=== PATIENT | male | born 1965 | race Caucasian/White ===

== ENCOUNTER 2021-06-08 11:43 | Observation (INO) | payer BC, SELFPAY ==
[2021-06-08] VITALS (12 sets, daily range): BP systolic 124–208; BP diastolic 64–104; PULSE 58–69; RESP 12–20; TEMP 36.6–36.9; O2SAT 95–98; BMI 32.5
--- NOTE | 2021-06-08 12:02 | DI.CT.S_ITS ---
PROCEDURE: CT STROKE INDICATIONS: TIA/CVA TECHNIQUE: Noncontrast 4.5 mm thick angled axial sections acquired from the foramen magnum to the vertex, with coronal reformats. For radiation dose reduction, the following was used: automated exposure control, adjustment of mA and/or kV according to patient size. COMPARISON: None. FINDINGS: Image quality: Excellent. CSF spaces: Basal cisterns are patent. No extra-axial fluid collections. Ventricles are normal in size and shape. Brain: No midline shift. No intracranial masses or hemorrhage. Mccloud-white matter interface is normal. Skull and face: Calvarium and visualized facial bones are intact, without suspicious lesions. Sinuses: Visualized sinuses and mastoids are clear. IMPRESSION: No acute intracranial hemorrhage is seen. No acute intracranial process is seen. Note: Case discussed by telephone with Dr. Hopson at 11:18 a.m. [place] time on June 08, 2021. This study fulfills neurological imaging criteria for inclusion or exclusion of acute stroke therapies based on available published neurological imaging guidelines. Dictated by: Андрей Hill M.D. on 06/08/2021 at 11:17 Approved by: Андрей Hill M.D. on 06/08/2021 at 11:19
--- NOTE | 2021-06-08 12:02 | DI.RAD.S_ITS ---
PROCEDURE: XR CHEST 1V INDICATIONS: Possible stroke TECHNIQUE: One view of the chest was acquired. COMPARISON: [facility], CT, CT STROKE, 06/08/2021, 12:16. FINDINGS: Surgical changes and devices: None. Lungs and pleura: Lungs are clear. No pleural effusions or pneumothorax. Mediastinum: Mediastinal contours appear normal. Heart size is normal. Bones and chest wall: No suspicious bony lesions. Overlying soft tissues appear unremarkable. IMPRESSION: Portable chest within normal limits. Dictated by: Андрей Hill M.D. on 06/08/2021 at 11:46 Approved by: Андрей Hill M.D. on 06/08/2021 at 11:47
[2021-06-08 12:15] LABS: Add Manual Diff / Slide Review NO; Basophils Absolute Auto 100 /uL (0-100); Basophils Percent Auto 0.9 % (0-2); Eosinophils Absolute Auto 200 /uL (0-450); Eosinophils Percent Auto 2.7 % (2-4); Hematocrit 47.2 % (41-53); Hemoglobin 16.4 g/dL (13.5-17.5); Lymphocytes Absolute Auto 1500 /uL (1100-4500); Lymphocytes Percent Auto 19.8 % (25-40); Mean Corpuscular HGB Conc 34.6 % (30-36); Mean Corpuscular Volume 89.5 fL (80-100); Monocytes Absolute Auto 700 /uL (0-900); Monocytes Percent Auto 9.1 % (3-14); Neutrophils Absolute Auto 5300 /uL (1500-7000); Neutrophils Percent Auto 67.5 % (50-75); Platelet Count 202 X10^3/uL (150-400); Red Blood Cell Count 5.28 X10^6/uL (4.5-5.9); Red Cell Distribution Width 13.5 % (11.6-14.8); White Blood Cell Count 7.8 X10^3/uL (4.5-11.0)
[2021-06-08 12:25] LABS: Alanine Aminotransferase 50 IU/L (<50); Albumin 4.9 g/dL (3.5-5.0); Albumin Globulin Ratio 1.4 (1.0-2.8); Alkaline Phosphatase 85 U/L (38-126); Aspartate Aminotransferase 35 IU/L (17-59); Bilirubin Total 0.6 mg/dL (0.2-1.3); Blood Urea Nitrogen 15 mg/dL (9-20); Calcium 9.2 mg/dL (8.4-10.2); Carbon Dioxide 25 mmol/L (22-32); Chloride 101 mmol/L (98-107); Creatine Kinase 108 U/L (55-170); Estimated Glomerular Filt Rate > 60.0 mL/min (>60); Globulin 3.5 g/dL (1.7-4.1); Glucose 108 mg/dL (70-100); HEMOLYSIS 23 (0-50); Potassium 4.6 mmol/L (3.4-5.1); Sodium 137 mmol/L (137-145); Total Protein 8.4 g/dL (6.3-8.2)
[2021-06-08 12:37] LABS: Troponin I < 0.012 ng/mL (0.01-0.034)
[2021-06-08 12:40] LABS: CKMB % Relative Index 1.1 % (1.5-5.0); Creatine Kinase MB 1.16 ng/mL (<2.37)
--- NOTE | 2021-06-08 12:47 | ED.NEUROSD ---
HPI - Neuro Symptoms/Deficit General Chief Complaint: Neuro Symptoms/Deficit Stated Complaint: Sent From [facility],Dizzy,Facial Numbness,Vision Issues Time Seen by Provider: 06/08/21 12:03 Source: patient Mode of arrival: Ambulatory Limitations: no limitations History of Present Illness HPI Narrative: Patient is a 56-year-old male. He was sent from an outside walk-in clinic for evaluation of dizziness, facial numbness, loss of vision. He states the symptoms started this morning. 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 He states that he started to get dizzy. He described this is more of a lightheadedness rather than a vertigo sensation. He had started noticing some numbness on the right side of his face and also some numbness on his right arm and leg. The symptoms improved somewhat. He went to an outside walk-in clinic. While he was at the clinic he noticed that he could not see the right side of his phone. He also could not see the right side of the providers face. He was sent here to the emergency department for further evaluation. He was hypertensive. He has no history of high blood pressure. Here in the emergency department all of his symptoms have resolved. On Anticoagulants: No Related Data Home Medications Medication Instructions Recorded Confirmed No Known Home Medications 06/08/21 06/08/21 Allergies Allergy/AdvReac Type Severity Reaction Status Date / Time Cephalosporins Allergy Intermediate Rash Verified 06/08/21 14:04 Penicillins Allergy Intermediate Rash Verified 06/08/21 14:04 Review of Systems Constitutional Constitutional: Denies fever(s) Eyes Eyes: Reports as per HPI Cardiovascular Cardiovascular: Reports system reviewed and no additional complaints, except as documented, Denies chest pain and Denies dyspnea Respiratory Respiratory: Reports system reviewed and no additional complaints, except as documented and Denies dyspnea Gastrointestinal Gastrointestinal: Reports system reviewed and no additional complaints, except as documented and Denies abdominal pain Genitourinary Genitourinary: Reports system reviewed and no additional complaints, except as documented Musculoskeletal Musculoskeletal: Reports system reviewed and no additional complaints, except as documented Integumentary/Breasts Skin/Breast: Reports system reviewed and no additional complaints, except as documented Neurologic Neurologic: Reports as per HPI Psychiatric Psychiatric: Reports system reviewed and no additional complaints, except as documented Endocrine Endocrine: Reports system reviewed and no additional complaints, except as documented Hematologic/Lymphatic On Anticoagulants: No Allergic/Immunologic Allergic/Immunologic: Reports system reviewed and no additional complaints, except as documented Patient History Medical History Patient denies medical problems Social History household members: spouse and children Smoking Status: Never smoker alcohol intake: current Substance Use Type: does not use Exam Initial Vital Signs Initial Vital Signs: Vital Signs Temperature 97.8 F 06/08/21 11:52 Pulse Rate 69 06/08/21 11:52 Respiratory Rate 20 06/08/21 11:52 Blood Pressure 208/99 H 06/08/21 11:52 Pulse Oximetry 96 06/08/21 11:52 Const General: cooperative, healthy appearing, comfortable, well developed and well groomed Limitations: mental status not altered HENMT Head: normal to inspection and normocephalic Mouth: oral mucosae normal Eyes General: appearance normal, both eyes and all related structures Neck Neck: normal visual inspection Resp Effort & Inspection: normal respiratory effort Auscultation: clear to auscultation bilaterally Cardio Rate: regular rate Rhythm: regular rhythm GI Inspection: non-distended Palpation: soft and No tender Skin General: no rashes or lesions noted Lesions: no lesions Rashes: no rashes Neuro General: patient alert, patient awake and patient oriented x3 Cranial Nerves: CN's II-XI intact bilaterally Cognition: normal cognition Speech: speech normal Gait: normal gait Motor: muscle tone normal throughout Sensory Exam: no sensory deficits noted Coordination: [id number] test normal Extrem General: normal to inspection, capillary refill normal and No edema Psych Appearance: grossly normal and well kempt Scores GCS Yuli coma scale eye opening: Spontaneous [place] coma scale verbal response: Orientated Yuli coma scale motor response: Obey commands Yuli coma scale total score: 15 NIH Stroke Scale Level of Conciousness: Alert, keenly responsive Ask month/age: Answers both questions correctly. Open/close eyes, close hand: Performs both tasks correctly Best gaze horizontal: Normal Visual chaudhary: No visual loss Facial palsy: Normal symetrical movement Left arm drift: No drift for full 10 sec Right arm drift: No drift for full 10 sec Left leg drift: No drift for full 5 sec Right leg drift: No drift for full 5 sec Limb ataxia: Absent Sensory on face/arms/legs: Normal, no sensory loss Best language: No aphasia, normal Dysarthria: Normal Extinction or inattention: No abnormality Total NIH Stroke scale score: 0 Course Orders Ordered: ED Orders 06/08/21 12:02 CT Stroke Stat XR chest 1V Stat EKG-12 Lead Stat 06/08/21 12:05 Complete Blood Count AUTO DIFF Stat Comprehensive Metabolic Panel Stat Troponin & CK Cardiac Panel Stat 06/08/21 13:08 COVID19 - ADMIT ([employer] swab/PCR) Stat Acetaminophen (Acetaminophen 325 Mg Tablet) 650 mg PO Q6HR PRN PRN Reason: Fever Aspirin (Aspirin Ec 81 Mg Tablet) 81 mg PO DAILY JUNO Atorvastatin Calcium (Atorvastatin 20 Mg Tablet) 20 mg PO BEDTIME JUNO Enoxaparin Sodium (Enoxaparin 40 Mg/0.4 Ml Syringe) 40 mg SUBCUT DAILY JUNO Last Admin: 06/08/21 17:40 Dose: 40 mg Documented by: IRAM Metoprolol Tartrate (Metoprolol Tartrate 5 Mg/5 Ml Inj) 5 mg IV Q6H PRN PRN Reason: BP>210/110 Discontinued Medications Aspirin (Aspirin 81 Mg Chew Tab) 324 mg PO NOW ONE Stop: 06/08/21 12:48 Last Admin: 06/08/21 13:00 Dose: 324 mg Documented by: SYDNEY Labetalol HCl (Labetalol 20 Mg/4 Ml Syringe) 10 mg IV NOW ONE Stop: 06/08/21 12:48 Last Admin: 06/08/21 12:59 Dose: 10 mg Documented by: SYDNEY Vital Signs Vital signs: Vital Signs - 8 hr 06/08/21 11:52 06/08/21 12:07 06/08/21 12:30 Temperature 97.8 F Pulse Rate 69 65 68 Respiratory Rate 20 17 13 Blood Pressure 208/99 H Pulse Oximetry 96 98 98 06/08/21 12:59 06/08/21 13:00 Temperature Pulse Rate 63 68 Respiratory Rate 13 13 Blood Pressure 155/88 H 151/93 H Pulse Oximetry 97 95 MDM - Neuro Symptoms/Deficit Lab Data Attestation: I reviewed the patient's lab results. Result diagrams: 06/08/21 12:05 06/08/21 12:05 Labs: Lab Results 06/08/21 06/08/21 06/08/21 Range/Units 12:05 12:05 13:08 WBC 7.8 (4.5-11.0) X10^3/uL RBC 5.28 (4.5-5.9) X10^6/uL Hgb 16.4 (13.5-17.5) g/dL Hct 47.2 (41-53) % MCV 89.5 (80-100) fL MCH 31.0 (26-34) PG MCHC 34.6 (30-36) % RDW 13.5 (11.6-14.8) % Plt Count 202 (150-400) X10^3/uL Neut % (Auto) 67.5 (50-75) % Lymph % (Auto) 19.8 L (25-40) % [place] % (Auto) 9.1 (3-14) % Eos % (Auto) 2.7 (2-4) % Baso % (Auto) 0.9 (0-2) % Neut # (Auto) 5300 (4044-6057) /uL Lymph # (Auto) 1500 (0158-6179) /uL [place] # (Auto) 700 (0-900) /uL Eos # (Auto) 200 (0-450) /uL Baso # (Auto) 100 (0-100) /uL Sodium 137 (137-145) mmol/L Potassium 4.6 (3.4-5.1) mmol/L Chloride 101 (98-107) mmol/L Carbon Dioxide 25 (22-32) mmol/L BUN 15 (9-20) mg/dL Creatinine 1.15 (0.66-1.25) mg/dL Estimated GFR > 60.0 (>60) mL/min BUN/Creatinine Ratio 13.0 (6-22) Glucose 108 H (70-100) mg/dL Calcium 9.2 (8.4-10.2) mg/dL Total Bilirubin 0.6 (0.2-1.3) mg/dL AST 35 (17-59) IU/L ALT 50 H (<50) IU/L Alkaline Phosphatase 85 (38-126) U/L Total Creatine Kinase 108 (55-170) U/L CK-MB (CK-2) 1.16 (<2.37) ng/mL CK-MB (CK-2) Rel Index 1.1 L (1.5-5.0) % Troponin I < 0.012 (0.01-0.034) ng/mL Total Protein 8.4 H (6.3-8.2) g/dL Albumin 4.9 (3.5-5.0) g/dL Globulin 3.5 (1.7-4.1) g/dL Albumin/Globulin Ratio 1.4 (1.0-2.8) SARS-CoV-2 (PCR) Negative (Negative) Point of Care Testing Glucose POC [address] scan - head: Radiologist's Impression: [address] [address] [address] Scan Report Signed Patient: Vincent Burr MR#: [id number] : 1965 Acct:[id number] Age/Sex: 56 / M Date of Service: 06/08/21 Loc: ED Accession Number: [id number] ?? Procedure: CT Stroke Ordering Provider: Asa Hopson D.O. PROCEDURE:? CT STROKE ? INDICATIONS:? TIA/CVA ? TECHNIQUE:? Noncontrast 4.5 mm thick angled axial sections acquired from the foramen magnum to the vertex, with coronal reformats.? For radiation dose reduction, the following was used:? automated exposure control, adjustment of mA and/or kV according to patient size.? ? COMPARISON:? None. ? FINDINGS:? Image quality:? Excellent.? ? CSF spaces:? Basal cisterns are patent.? No extra-axial fluid collections.? Ventricles are normal in size and shape.? ? Brain:? No midline shift.? No intracranial masses or hemorrhage.? Mccloud-white matter interface is normal.? ? Skull and face:? Calvarium and visualized facial bones are intact, without suspicious lesions.? ? Sinuses:? Visualized sinuses and mastoids are clear.? ? ? IMPRESSION:? No acute intracranial hemorrhage is seen.? ? No acute intracranial process is seen.? ? Note: Case discussed by telephone with Dr. Hopson at 11:18 a.m. [place] time on June 08, 2021.? ? This study fulfills neurological imaging criteria for inclusion or exclusion of acute stroke therapies based on available published neurological imaging guidelines.? ? ? Dictated by: Андрей Hill M.D. on 06/08/2021 at 11:17 ? ? Approved by: Андрей Hill M.D. on 06/08/2021 at 11:19?? Chest x-ray: Radiologist's Impression: [address] [address] XRay Report Signed Patient: Vincent Burr MR#: [id number] : 1965 Acct:[id number] Age/Sex: 56 / M Date of Service: 06/08/21 Loc: ED Accession Number: [id number] ?? Procedure: XR chest 1V Ordering Provider: Asa Hopson D.O. PROCEDURE:? XR CHEST 1V ? INDICATIONS:? Possible stroke ? TECHNIQUE:? One view of the chest was acquired.? ? COMPARISON:? [facility], CT, CT STROKE, 06/08/2021, 12:16. ? FINDINGS:? ? Surgical changes and devices:? None.? ? Lungs and pleura:? Lungs are clear.? No pleural effusions or pneumothorax.? ? Mediastinum:? Mediastinal contours appear normal.? Heart size is normal.? ? Bones and chest wall:? No suspicious bony lesions.? Overlying soft tissues appear unremarkable.? IMPRESSION:? ? Portable chest within normal limits. ? ? ? Dictated by: Андрей Hill M.D. on 06/08/2021 at 11:46 ? ? Approved by: Андрей Hill M.D. on 06/08/2021 at 11:47?? ECG Data Attestation: I personally reviewed and interpreted this ECG as follows: Interpretation: EKG obtained prior to arrival here in the ER Sinus arrhythmia Ventricular rate is 75 Normal axis Normal QRS Normal QTC No ST T wave changes MDM Narrative Medical decision making narrative: Patient's symptoms have resolved. His head CT is unremarkable. He has no vision deficits today. He was hypertensive upon arrival. He was given labetalol to improve this. Given his visual disturbances that he had earlier today I have a higher suspicion for TIA. Patient was also given aspirin. Patient does require further evaluation will be admitted to the hospital. Discussed the need for admission with the patient. He expressed understanding and agreement. Discharge Plan Departure Patient Disposition: Admitted as Observation Clinical Impression: Brain TIA, Hypertension Admit Date/Time: 06/08/21 13:23 Admit Provider: Elsi Huff
[2021-06-08] MEDS: LABETALOL 20 MG/4 ML SYRINGE 10 MG IV (12:59)
[2021-06-08] MEDS: ASPIRIN 81 MG CHEW TAB 324 MG PO (13:00)
[2021-06-08 14:02] LABS: COVID19 - ADMIT (NP swab/PCR) Negative (Negative)
--- NOTE | 2021-06-08 14:19 | PT-IP ANOTE ---
PT order received. ED note not yet complete, pt arrived 2 hours ago with facial numbness and vision changes. Will hold PT consult until work-up is completed, ED note complete and impression given.
--- NOTE | 2021-06-08 14:40 | PM.HP.1 ---
History of Present Illness History of Present Illness Date Patient Seen: 06/08/21 Chief complaint: Sent From [facility],Dizzy,Facial Numbness,Vision Issues Narrative: THIS IS A 56-YEAR-OLD MALE WITH REPORTEDLY NO SIGNIFICANT PAST MEDICAL HISTORY REASON TO THE HOSPITAL WITH REPORTED NUMBNESS TO HIS FACIAL AREA. SOME CHANGE OF VISION ALSO REPORTED. HE STATED THAT THIS BEEN GOING JUST PRIOR TO ADMISSION TODAY E.D. AT AROUND 10:30 A.M. THIS MORNING.. IT LASTED ABOUT 2 HOURS AND SYMPTOMS HAVE RESOLVED AT THIS TIME. HE REPORTED A PRIOR SIMILAR EVENTS ABOUT 6 MONTHS AGO. THIS WAS ALSO ASSOCIATED WITH BLURRED /DOUBLE VISIONS. NO HISTORY OF [place], DIABETES, OR HYPERTENSION. DESPITE PATIENT DENIES ANY HISTORY OF HYPERTENSION HOWEVER HIS BLOOD PRESSURE SIGNIFICANTLY BETTER THAN ADMISSION. APART FROM SOME MILDLY ELEVATED LIVER ENZYMES WELL BLOOD GLUCOSE LEVEL, HIS WORKUP IS FAIRLY BENIGN. CT OF THE HEAD WAS NEGATIVE FOR ANY ACUTE CHANGES NO SIGNS OF INFECTIOUS PROCESS ON IMAGING. Patient History Family & Social History Safety & Behavioral: Feels Safe in Current Yes Environment Been Physically Hurt or No Threatened By a Person Tobacco & Substance use: Substance Use Type does not use Meds Home Medications and Allergies Home Medications Medication Instructions Recorded Confirmed Type No Known Home Medications 06/08/21 06/08/21 History Allergies Allergy/AdvReac Type Severity Reaction Status Date / Time Cephalosporins Allergy Intermediate Rash Verified 06/08/21 14:04 Penicillins Allergy Intermediate Rash Verified 06/08/21 14:04 Review of Systems Review of Systems Narrative: ALL SYSTEM REVIEWED. NEGATIVE UNLESS NOTED ABOVE IN HPI Exam Vital Signs (past 8 hours): - 06/08/21 11:52 06/08/21 12:07 06/08/21 12:30 Temperature 97.8 F Pulse Rate 69 65 68 Respiratory Rate 20 17 13 Blood Pressure 208/99 H Pulse Oximetry 96 98 98 06/08/21 12:59 06/08/21 13:00 06/08/21 13:30 Temperature Pulse Rate 63 68 58 L Respiratory Rate 13 13 12 Blood Pressure 155/88 H 151/93 H Pulse Oximetry 97 95 96 06/08/21 13:31 06/08/21 13:45 06/08/21 14:00 Temperature Pulse Rate 58 L 60 58 L Respiratory Rate 17 12 Blood Pressure 124/64 158/74 H 156/89 H Pulse Oximetry 95 96 06/08/21 14:30 Temperature Pulse Rate 58 L Respiratory Rate 16 Blood Pressure 142/79 H Pulse Oximetry 96 Oxygen Delivery Method Room Air Narrative Exam Narrative: NO ACUTE DISTRESS. PATIENT IS ALERT ORIENTED X3. VITAL SIGNS STABLE HEAD ATRAUMATIC NORMOCEPHALIC NECK : SUPPLE WITHOUT ADENOPATHY NO CAROTID BRUITS EYE: EOMI, PERRLA, NORMAL CONJUNCTIVA; NO JAUNDICE CHEST: REGULAR RATE. NO RUBS. PMI IS NON DISPLACED. NO MURMURS; NORMAL S1-S2 PULMONARY: DECREASED BS OVER THE BASES. MILD BIBASILAR CRACKLES NOTED; NO INCREASED DULLNESS TO PERCUSSION ABDOMEN: SOFT. NONTENDER. NONDISTENDED. BOWEL SOUNDS ARE PRESENT IN ALL 4 QUADRANTS. NO MASS. EXTREMITIES: NO EDEMA.. NO CYANOSIS CLUBBING NOTED. NEURO: CRANIAL NERVES 2-12 GROSSLY INTACT. NO FOCAL NEUROLOGICAL DEFICIT NOTED. MSK: NORMAL RANGE OF MOTION FOR AGE. NO JOINT EFFUSION. SKIN: NORMAL FOR ETHNICITY; NO ECCHYMOSIS. NO LESION. GOOD TURGOR.; NO RASHES : NORMAL EXTERNAL GENITALIA. PSYCH : APPROPRIATE MOOD AND AFFECT. ALERT AWAKE ORIENTED X3 Objective Labs Result Diagrams: 06/08/21 12:05 06/08/21 12:05 Labs: Laboratory Results - last 24 hr 06/08/21 06/08/21 06/08/21 12:05 12:05 13:08 WBC 7.8 RBC 5.28 Hgb 16.4 Hct 47.2 MCV 89.5 MCH 31.0 MCHC 34.6 RDW 13.5 Plt Count 202 Neut % (Auto) 67.5 Lymph % (Auto) 19.8 L [place] % (Auto) 9.1 Eos % (Auto) 2.7 Baso % (Auto) 0.9 Neut # (Auto) 5300 Lymph # (Auto) 1500 [place] # (Auto) 700 Eos # (Auto) 200 Baso # (Auto) 100 Sodium 137 Potassium 4.6 Chloride 101 Carbon Dioxide 25 BUN 15 Creatinine 1.15 Estimated GFR > 60.0 BUN/Creatinine Ratio 13.0 Glucose 108 H Calcium 9.2 Total Bilirubin 0.6 AST 35 ALT 50 H Alkaline Phosphatase 85 Total Creatine Kinase 108 CK-MB (CK-2) 1.16 CK-MB (CK-2) Rel Index 1.1 L Troponin I < 0.012 Total Protein 8.4 H Albumin 4.9 Globulin 3.5 Albumin/Globulin Ratio 1.4 SARS-CoV-2 (PCR) Negative Assessment & Plan Assessment & Plan narrative: PROBLEM LIST POSSIBLE TIA VERSUS CVA. MRI PENDING ACCELERATED HYPERTENSION VERSUS HYPERTENSIVE URGENCY ELEVATED LIVER ENZYMES. MILD. UNCLEAR CAUSE. PLAN WILL CHECK AN ECHOCARDIOGRAM WILL ALSO CHECK A CAROTID ULTRASOUND LIPITOR TO HOLD THE MORNING ANTIHYPERTENSIVE MEDICATION ORDERED COULD CONSIDER STARTING ON ORAL ANTI HYPERTENSIVE MEDS PRIOR TO DISCHARGE NEURO CHECK EVERY 4 HOURS Q.4 HOURS VITAL SIGNS REFERRED TO PT AND OT TEAMS REPEAT CT HEAD IF INDICATED MRI OF THE BRAIN ORDERED CONSIDER MRA OF THE HEAD AND NECK WELL CHECK RPR AND HOMOCYSTINE LEVEL FALL PRECAUTIONS ADDITIONAL MANAGEMENT PER CLINICAL COURSE DISCHARGE LIKELY IN THE NEXT 24-48 HRS Time Spent With Patient Critical Care time: I spent a total of [] minutes of critical care time on this patient's care today; this time is exclusive of procedural time.
[2021-06-08] MEDS: ENOXAPARIN 40 MG/0.4 ML SYRINGE SUBCUT (17:40)
--- NOTE | 2021-06-08 18:38 | PC.NURSE ---
Addendum entered by Ashwini Sands R.N. 06/08/21 18:41: NIH scale a 0. Original Note: Patient is not having any visual changes, he is able to lift both his arms and legs up and is not having any memory issues or hemiperisis. He is alert and oriented x3, blood suar in the 80s and no swallowing issues. Resting comfortably now.
[2021-06-08] MEDS: ATORVASTATIN 20 MG TABLET PO (20:29)
[2021-06-08] MEDS: ACETAMINOPHEN 325 MG TABLET 650 MG PO (20:34)
--- NOTE | 2021-06-09 | DI.ECHO.S_ITS ---
[facility]---------+ [facility] +---------+ : : [address] [place] : : : : [id number] : : : : Phone: [phone] Echocardiogram Report + :Name: LILA LIVE Study Date: 06/09/2021 Height: 69 in : :[facility] ReadingLocation: Weight: 220 lb : : Gender: Male BSA: 2.2 m2 : :: 1965 Age: 56 yrs BP: 133/83 mmHg: :Reason For Study: TIA VS CVA : :Ordering Physician: [facility] Performed By: Tori Reyna : :Referring: TATA MENDEZ : + Interpretation Summary The patient was in normal sinus rhythm during the exam. The left ventricle is normal in size and wall thickness. The ejection fraction is estimated to be 60-65%. There is no obvious LV thrombus. The right ventricle is normal in size and function. Doppler interrogation and injection of saline echo contrast shows no evidence for an interatrial shunt. There is mild tricuspid regurgitation. The right ventricular systolic pressure is estimated to be at least 29 mmHg based on an estimated right atrial pressure of 3 mm Hg. The ascending aorta is mildly enlarged. Procedure: A two-dimensional transthoracic echocardiogram with color flow and Doppler was performed. The study quality was technically adequate. There is no prior echocardiogram noted for this patient. A saline contrast injection was performed to assess for cardiac shunting. The patient was in normal sinus rhythm during the exam. Left Ventricle: The left ventricle is normal in size and wall thickness. There is no thrombus. The ejection fraction is estimated to be 60-65%. There are no obvious focal wall motion abnormalities noted but poor endocardial definition reduces the sensitivity for the detection of such. MV E/A: 1.1 Med Peak E' Jani: 5.9 cm/sec E/E' med: 14.7. Right Ventricle: The right ventricle is normal in size and function. Atria: Both atria are normal in size. Bubble study was captured on image frame(s) # 68. Doppler interrogation and injection of saline echo contrast shows no evidence for an interatrial shunt. Mitral Valve: The mitral valve is normal in structure and function. There is trace mitral regurgitation. Aortic Valve: The aortic valve is normal in structure and function. The aortic valve is trileaflet. There is no aortic valve stenosis. There is trace aortic regurgitation. Tricuspid Valve: The tricuspid valve is normal. There is mild tricuspid regurgitation. The right ventricular systolic pressure is estimated to be at least 29 mmHg based on an estimated right atrial pressure of 3 mm Hg. Pulmonic Valve: The pulmonic valve is not well seen, but is grossly normal. There is trace pulmonic regurgitation. Great Vessels: The aortic root is normal size. The ascending aorta is mildly enlarged. The aortic arch is normal in size. The IVC is of normal diameter and collapses greater than 50% with a sniff. This suggests a low right atrial pressure of 3 mm Hg. Pericardium/ Pleura There is no pericardial effusion. There is no pleural effusion. MMode/2D Measurements & Calculations LVIDd: 4.1 cm LVOT diam: 2.0 cm LVIDs: 3.1 cm Ao root diam: 3.2 cm FS: 25.3 % asc Aorta Diam: 3.9 cm EPSS: 0.49 cm Ao Arch Diam (Prox Trans): 2.9 cm IVSd: 0.90 cm LVPWd: 1.1 cm LV garcia. diameter/BSA (cm/m^2): 1.9 LV sys. diameter/BSA (cm/m^2): 1.4 LA A2 area: 13.8 cm2 RA long axis: 5.4 cm LA A4 area: 16.5 cm2 RA area: 14.9 cm2 LA length (vol): 5.0 cm RA vol: 35.0 ml LA vol: 38.9 ml RA : 16.3 ml/m2 LA vol index: 18.1 ml/m2 IVC diam: 2.1 cm RVD1 (basal): 3.5 cm TAPSE: 2.5 cm Doppler Measurements & Calculations Ao V2 max: 135.6 cm/sec LVOT Max Jani: 95.3 cm/sec Ao V2 mean: 91.1 cm/sec LV V1 max P.6 mmHg Ao max P.4 mmHg LV V1 VTI: 21.4 cm Ao mean P.9 mmHg DORIE(I,D): 2.1 cm2 Ao V2 VTI: 31.5 cm DORIE(V,D): 2.1 cm2 sev ratio: 0.68 DORIE indexed to BSA (cm^2/m^2): 0.96 MV E max jani: 87.4 cm/sec TR max jani: 251.8 cm/sec MV A max jani: 76.9 cm/sec TR max P.4 mmHg MV E/A: 1.1 PA V2 max: 79.2 cm/sec Med Peak E' Jani: 5.9 cm/sec PA V2 mean: 55.8 cm/sec E/E' med: 14.7 PA mean P.4 mmHg Lat Peak E' Jani: 8.7 cm/sec PA pr(Accel): 45.6 mmHg E/E' lat: 10.0 E/e' average: 12.4 MV dec time: 0.20 sec SV(LVOT): 64.7 ml Reading Physician:01:41 PM
[2021-06-09 05:19] LABS: Hemoglobin A1C% w Est Avg Glu 5.6 % (4.0-6.0)
[2021-06-09 05:24] LABS: Alanine Aminotransferase 47 IU/L (<50); Albumin 4.2 g/dL (3.5-5.0); Albumin Globulin Ratio 1.3 (1.0-2.8); Alkaline Phosphatase 72 U/L (38-126); Aspartate Aminotransferase 36 IU/L (17-59); BUN Creatinine Ratio 13.2 (6-22); Bilirubin Total 0.6 mg/dL (0.2-1.3); Blood Urea Nitrogen 16 mg/dL (9-20); Calcium 9.1 mg/dL (8.4-10.2); Carbon Dioxide 26 mmol/L (22-32); Chloride 103 mmol/L (98-107); Estimated Glomerular Filt Rate > 60.0 mL/min (>60); Globulin 3.2 g/dL (1.7-4.1); Glucose 109 mg/dL (70-100); HEMOLYSIS < 15 (0-50); Potassium 4.3 mmol/L (3.4-5.1); Sodium 137 mmol/L (137-145); Total Protein 7.4 g/dL (6.3-8.2)
[2021-06-09 05:25] LABS: Cholesterol 313 mg/dL (140-199); HDL Cholesterol 40 mg/dL (40-60); LDL Cholesterol Calculated 220 mg/dL (<100); Triglycerides 265 mg/dL (35-150)
[2021-06-09 08:00] VITALS: BP 133/83; PULSE 59; RESP 18; TEMP 36.1; O2SAT 96
[2021-06-09] MEDS: ENOXAPARIN 40 MG/0.4 ML SYRINGE SUBCUT (08:15)
[2021-06-09] MEDS: ASPIRIN EC 81 MG TABLET PO (08:15)
--- NOTE | 2021-06-09 10:05 | PC.NURSE ---
Assess- Patients NIH stroke scale a 0. He is up independently to the bathroom. Denies any visual issues, numbness or tingling. He is resting comfortably.
--- NOTE | 2021-06-09 11:03 | PT.IIE ---
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 Social History Household Members spouse,children Living Arrangements House Number of Floors (Floors) One Floor Number of Stairs To Enter/Railing? 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, works at [employer] M2 PT-IP Current Condition Start: 06/09/21 11:29 Freq: NEEDED Status: Active Protocol: Document 06/09/21 11:03 DLM (Rec: 06/09/21 11:40 DL [id number]) Physical Therapy Current Condition Current Condition Evaluation Date 06/09/21 Treatment Diagnosis facial numbness, impaired balance and vision changes Onset Date 06/08/21 M3 PT-IP Subjective Start: 06/09/21 11:29 Freq: NEEDED Status: Active Protocol: Document 06/09/21 11:03 DLM (Rec: 06/09/21 11:40 DL [id number]) Subjective Physical Therapy Visit Type Type Initial Evaluation Visit Start Time 10:25 Visit Stop Time 11:03 Total Visit Minutes 38 Number of ASSISTANT NURSE MANAGER Visits 0 Physical Therapy Visit Comments Patient Comments He reports all of his symptoms have resolved today. He felt like he was falling to the right yesterday and was not able to see things on the right side. Patient Goals discharge home Therapy Pain Assessment Pain When Pain Assessed During Mobility Pain Present Pain Present Denied Pain M4 PT-IP Mobility and Gait Start: 06/09/21 11:29 Freq: NEEDED Status: Active Protocol: Document 06/09/21 11:03 DLM (Rec: 06/09/21 11:40 DL [id number]) PT-Bed Mobility Assessment Rolling Type of Rolling Bilateral Level of Assist Independent Supine to Sit Supine to Sit Independent Sit to Supine Sit to Supine Independent Scooting Scooting to Edge of Bed Independent Scooting Up and Down in Bed Independent PT-Transfer Assessment Sit to and From Stand Sit to and from Stand Independent Equipment Transfer Assistive Device None Transfers Transfer Destination Chair Transfer Technique Stand Step Pivot Transfer Ability Level of Assist Independent Gait Assessment Gait Gait Assistance Required: Independent Distance (Feet) 300 Assistive Devices Assistive Device None Gait Deviations General Gait Pattern Within Normal Limits Comments Gait Comments safe gait pattern, no drift to right today, no losses of balance observed Stair Climbing Assessment Evaluation Level of Assist On Stairs Independent Devices Stair Climbing Assistive Devices None Technique/Endurance Stair Climbing Direction Ascend and Descend Stair Climbing Technique Step Over Step Number of Steps Climbed 3 Query Text: Stair Climbing Set # Repetitions (reps) 1 PT-Balance Assessment Sitting Balance and Reactions Static Sitting Balance Ability Normal Dynamic Sitting Balance Ability Normal Standing Balance and Reactions Static Standing Balance Ability Normal Dynamic Standing Balance Ability Normal Device Used no device Balance Tests Single Limb Standing Independent, holds greater than 10 sec Romberg independent, no LOB Tandem Standing Independent, no LOB Velarde Balance Test Score 56 Query Text:Score Comments Other Balance Tests/Deviations/Treatment pt describes feeling like it : is a little more difficult for him to balance on right foot than left M5 PT-IP Objective Assessments Start: 06/09/21 11:29 Freq: NEEDED Status: Active Protocol: Document 06/09/21 11:03 DL (Rec: 06/09/21 11:40 [facility] [id number]) Orientation Orientation/Cognition Level of Alertness Alert Language Function Ability No Deficits Noted Safety Awareness Understands Safety Issues Memory Description No Deficits Noted Comments vision screening shows no deficits with saccades or smooth pursuits Gross Range of Motion Upper Extremity ROM Assessment Within Functional Limits Lower Extremity ROM Assessment Within Functional Limits Strength Upper Extremity Strength Assessment Within Functional Limits Lower Extremity Strength Assessment Within Functional Limits Coordination Assessment Gross Coordination Gross Coordination WNL Sensation Assessment Sensation Gross Sensation WNL Muscle Tone Muscle Tone WNL Yes M6 PT-IP Treatment Start: 06/09/21 11:29 Freq: NEEDED Status: Active Protocol: Document 06/09/21 11:03 DLM (Rec: 06/09/21 11:40 [facility] [id number]) Physical Therapy Treatment Education Education Provided Safety Other Treatments Other Treatment Performed he reports a prior episode like this one but less intense about 6 months ago and a very brief episode in the car about 5 years ago, no deficits following these events M7 PT-IP Assessment and Plan Start: 06/09/21 11:29 Freq: NEEDED Status: Active Protocol: Document 06/09/21 11:03 BRANDEN (Rec: 06/09/21 11:40 DL [id number]) PT Summary Assessment and Plan Potential Rehabilitation Potential Excellent Status of Condition at Evaluation Stable Summary Progress Towards Goals Safe For Discharge Assessment Summary Vincent reports his symptoms have resolved. Clinical testing did not reveal any deficits at this time. He had no symptoms with gait in the glass. Pt feels safe to discharge home when medically cleared. He verbalizes having a lot of stress at home and does not see a doctor for regular check -ups. No further physical therapy needed at this time. Frequency of Treatment Frequency Of Treatment Discharge Treatment Plan Other Recommendations and Next Treatment no further treatment needed at [facility] this time Recommendations To Nursing Amount of Assist Needed Independent Discharge Recommendations PT Discharge Recommendations Home Transportation Needs at Discharge Private Vehicle
[2021-06-09 12:00] VITALS: BP 135/95; PULSE 64; RESP 18; TEMP 36.3; O2SAT 97
--- NOTE | 2021-06-09 13:57 | DI.MRI.S_ITS ---
PROCEDURE: MR STROKE Pre- and post-contrast brain MRI, non-contrast brain MR angiogram, pre- and postcontrast neck MR angiogram INDICATIONS: r/o cva TECHNIQUE: Brain: Noncontrast axial T1 spin echo, axial T2 fast spin echo, sagittal and axial FLAIR, coronal T2 fast spin echo, axial gradient echo, axial diffusion and ADC through the brain. After the administration of contrast, axial 3D VIBE of the cranial vasculature and brain. Brain MRA: Non-contrast 3-D time of flight MR angiogram, with multiple juwmzpb-nxsraehyb-yeanoadmva (MIP) reformats performed. Neck MRA: Axial and sagittal TruFISP through the neck. Coronal dynamic MR angiogram during administration of contrast in the arterial and venous phases, with 3-dimenstional boquhxl-vzyfsqmvd-gtbszmbwil (MIP) reformats constructed from subtraction images. COMPARISON: [facility], CT, CT STROKE, 06/08/2021, 12:16. FINDINGS: Image quality: Excellent. BRAIN: CSF spaces: Ventricles are normal in size and shape. Basal cisterns are patent. No extra-axial fluid collections. Brain: No intracranial bleeds or mass effects. Mccloud-white matter interface is normal. Diffusion weighted images show no acute ischemic insults. Brainstem appears normal. Normal intravascular flow voids are present. No abnormal intracranial enhancement. Skull and face: Calvarial marrow signal is normal. Orbits appear normal. Sinuses: Kszv-rc-uetusmjm mucosal thickening is seen within the left maxillary sinus and there is mild mucosal thickening within right maxillary sinus. Sinuses and mastoids are otherwise relatively clear. A right-sided javier bullosa is incidentally noted. BRAIN MR ANGIOGRAM: Anterior circulation: Intracranial internal carotid arteries are normal in size and enhancement. The flow within the paired anterior cerebral arteries is normal and symmetric. The flow within the middle cerebral arteries is normal and symmetric. The anterior communicating artery is seen. No stenoses, occlusions, or aneurysms. Posterior circulation: The right V4 segment is unremarkable. There is high-grade stenosis seen within the left V4 segment, at least 90%. join to form a normal appearing basilar artery. The flow within the posterior cerebral arteries is normal and symmetric. No stenoses, occlusions, or aneurysms. NECK MR ANGIOGRAM: Carotids: Great vessels demonstrate a conventional anatomy as they arise from the aortic arch. The origins of the common carotid arteries appear patent. The calibers and courses of both common carotid arteries are normal. The bifurcation regions appear normal bilaterally. The internal carotid arteries demonstrate normal course and caliber. Posterior circulation: The origins of the vertebral arteries appear patent. More superior extracranial portions of both vertebral arteries demonstrate normal course and caliber. The right vertebral artery is dominant to the left. Miscellaneous: Subclavian arteries appear patent. Pre-contrast images through the neck show no soft tissue abnormalities. IMPRESSION: BRAIN MRI: No findings of acute or subacute infarction can be seen. No masses or abnormal enhancement can be seen. BRAIN MR ANGIOGRAM: There is approximately 90% stenosis seen involving the right V4 segment. NECK MR ANGIOGRAM: Within the arteries of the neck, no hemodynamically significant stenosis can be seen. Dictated by: Андрей Hill M.D. on 06/09/2021 at 14:56 Approved by: Андрей Hill M.D. on 06/09/2021 at 15:00
--- NOTE | 2021-06-09 14:10 | PM.DS.1 ---
History of Present Illness History of Present Illness Date Patient Seen: 06/09/21 Chief complaint: Sent From [facility],Dizzy,Facial Numbness,Vision Issues Narrative: THIS IS A 56-YEAR-OLD MALE WITH REPORTEDLY NO SIGNIFICANT PAST MEDICAL HISTORY REASON TO THE HOSPITAL WITH REPORTED NUMBNESS TO HIS FACIAL AREA. SOME CHANGE OF VISION ALSO REPORTED. HE STATED THAT THIS BEEN GOING JUST PRIOR TO ADMISSION TODAY E.D. AT AROUND 10:30 A.M. THIS MORNING.. IT LASTED ABOUT 2 HOURS AND SYMPTOMS HAVE RESOLVED AT THIS TIME. HE REPORTED A PRIOR SIMILAR EVENTS ABOUT 6 MONTHS AGO. THIS WAS ALSO ASSOCIATED WITH BLURRED /DOUBLE VISIONS. NO HISTORY OF PR, DIABETES, OR HYPERTENSION. DESPITE PATIENT DENIES ANY HISTORY OF HYPERTENSION HOWEVER HIS BLOOD PRESSURE SIGNIFICANTLY BETTER THAN ADMISSION. APART FROM SOME MILDLY ELEVATED LIVER ENZYMES WELL BLOOD GLUCOSE LEVEL, HIS WORKUP IS FAIRLY BENIGN. CT OF THE HEAD WAS NEGATIVE FOR ANY ACUTE CHANGES NO SIGNS OF INFECTIOUS PROCESS ON IMAGING. Discharge Providers Provider Date of admission: 06/08/21 13:23 Discharge Date: 06/09/21 Consults: 06/08/21 13:47 Consult to Discharge Planning Routine Comment: Consult to Physical Therapy Evaluate & Treat Comment: Physician Instructions: Evaluate and Treat Discharge provider: Elsi Huff, DO Summary Hospital Course Discharge Diagnosis: POSSIBLE TIA ?. DISCHARGED ON ANTI LIPIDS WELL ASA HYPERTENSIVE URGENCY. DISCHARGE ON BLOOD PRESSURE MEDICATIONS ?ELEVATED LIVER ENZYMES.? ? NO ACUTE TREATMENT INDICATED Hospital Course: 56-YEAR-OLD MALE ADMITTED TO THE HOSPITAL WITH REPORTED SYMPTOMS OF SUSPECTED TIA OR STROKE MRI EVER WAS NEGATIVE. CT OF THE HEAD WAS NEGATIVE WELL. MRA DID SHOW SOME VASCULAR NARROWING WITHIN THE BRAIN. HOWEVER THIS COULD BE FOLLOWED OUTPATIENT. NO INDICATION FOR IMMEDIATE TREATMENT. PATIENT WILL BE DISCHARGED TO HOME. ADDITIONALLY WE DEFERRED TO HIS OUTPATIENT PROVIDERS. Status at Discharge Cognitive/behavioral status at discharge: oriented Functional status at discharge: independent ambulation Overall status at discharge: patient is back to baseline Time Spent with Patient Time spent: Greater than 30 minutes Exam Vital Signs (past 8 hours): - 06/09/21 08:00 06/09/21 12:00 Temperature 96.9 F L 97.4 F L Pulse Rate 59 L 64 Respiratory Rate 18 18 Blood Pressure 133/83 135/95 H Pulse Oximetry 96 97 Oxygen Delivery Method Room Air Oxygen Flow Rate 0 Narrative Exam Narrative: NO ACUTE DISTRESS. PATIENT IS ALERT ORIENTED X3. VITAL SIGNS STABLE HEAD ATRAUMATIC NORMOCEPHALIC NECK : SUPPLE WITHOUT ADENOPATHY NO CAROTID BRUITS EYE: EOMI, PERRLA, NORMAL CONJUNCTIVA; NO JAUNDICE CHEST: REGULAR RATE. NO RUBS. PMI IS NON DISPLACED. NO MURMURS; NORMAL S1-S2 PULMONARY: DECREASED BS OVER THE BASES. MILD BIBASILAR CRACKLES NOTED; NO INCREASED DULLNESS TO PERCUSSION ABDOMEN: SOFT. NONTENDER. NONDISTENDED. BOWEL SOUNDS ARE PRESENT IN ALL 4 QUADRANTS. NO MASS. EXTREMITIES: NO EDEMA.. NO CYANOSIS CLUBBING NOTED. NEURO: CRANIAL NERVES 2-12 GROSSLY INTACT. NO FOCAL NEUROLOGICAL DEFICIT NOTED. MSK: NORMAL RANGE OF MOTION FOR AGE. NO JOINT EFFUSION. SKIN: NORMAL FOR ETHNICITY; NO ECCHYMOSIS. NO LESION. GOOD TURGOR.; NO RASHES : NORMAL EXTERNAL GENITALIA. PSYCH : APPROPRIATE MOOD AND AFFECT. ALERT AWAKE ORIENTED X3 Objective Labs Result Diagrams: 06/08/21 12:05 06/09/21 04:30 Labs: Laboratory Results - last 24 hr 06/09/21 06/09/21 06/09/21 04:30 04:30 04:30 Sodium 137 Potassium 4.3 Chloride 103 Carbon Dioxide 26 BUN 16 Creatinine 1.21 Estimated GFR > 60.0 BUN/Creatinine Ratio 13.2 Glucose 109 H Hemoglobin A1c 5.6 Calcium 9.1 Total Bilirubin 0.6 AST 36 ALT 47 Alkaline Phosphatase 72 Total Protein 7.4 Albumin 4.2 Globulin 3.2 Albumin/Globulin Ratio 1.3 Triglycerides 265 H Cholesterol 313 H LDL Cholesterol, Calc 220 H HDL Cholesterol 40 PFSH Medical History Patient denies medical problems Social History household members: spouse and children Smoking Status: Never smoker alcohol intake: current Discharge Plan Discharge Plan Patient Disposition: Home Discharge orders & Medications Prescriptions: New aspirin 81 mg Tablet,Delayed Release (Dr/Ec) 162 mg PO DAILY Qty: 90 0RF atorvastatin 40 mg tablet 40 mg PO BEDTIME Qty: 90 0RF fenofibrate nanocrystallized [Tricor] 48 mg tablet 48 mg PO DAILY Qty: 90 0RF amlodipine 5 mg tablet 5 mg PO DAILY Qty: 90 0RF lisinopril 20 mg tablet 20 mg PO DAILY Qty: 90 0RF Diet/Activity/Treatments Diet: Low-fat and Low-cholesterol Skin/Wound/Dressing Care Report to your healthcare provider any signs of infection, such as:: chills, fever and night sweats Visit Report/Discharge Packet Instructions: Transient Ischemic Attack Discharge Data Attending Provider: Elsi Huff Quality VTE Deep Vein Thrombosis/Pulmonary Embolism Present on Admission: No
--- NOTE | 2021-06-09 16:04 | CM.DANOTE ---
DCP Brief Assessment Patient is a 56 yo male who was admitted on 06/08/21 for Dizzy/Vision issues. Pt has [employer] for insurance and his PCP is not listed. EMR was reviewed. Per MD, pt admitted for TIA vs CVA r/o. MRI and Echo pending and PT/OT ordered and pending. Per PT, pt active and independent at baseline and recommending safe d/c home via POV and no current PT needs. MRI and Echo results are normal and per MD pt is medically stable to d/c home and no identified barriers to discharge. Per RN, no concerns at this time. No bedside assessment completed at this time due to triage needs and no identified barriers for d/c. Plan: Patient to d/c home via spouse POV this afternoon and no SW needs at this time, please refer if indicated. KATHLEEN Salinas
[2021-06-10 09:50] LABS: Homocysteine 16.7 umol/L (0.0-14.5)
[2021-06-11 09:04] LABS: RPR Screen Non Reactive (Non Reactive)
== END 2021-06-09 17:10 | disposition home or self-care (01) ==
LOC: ED 13:23 → AC 13:24
PROVIDERS: Admitting Provider Hospitalist; Emergency Provider Emergency Medicine; Referring Provider Emergency Medicine; Visit Provider Hospitalist
DX: I16.0 Hypertensive urgency (principal); R42 Dizziness and giddiness; R20.0 Anesthesia of skin; H53.8 Other visual disturbances; R74.01 Elevation of levels of liver transaminase levels; R73.9 Hyperglycemia, unspecified; Z20.822 Contact with and (suspected) exposure to COVID-19
CPT/HCPCS: 36415; 70450; 70548; 70553; 71045; 80053; 80061; 82550; 82553; 82962; 83036; 83090; 84484; 85025; 86592; 87635; 93306; 96372; 96374; 97161; 99285; C9803; G0378; A9579; J1650